=== PATIENT | male | born 1925 | race Caucasian/White ===

== ENCOUNTER → 2016-06-27 | Outpatient (CLI) | payer MEDICARE, BC ==
[~2016-06-27] MED LIST: CLON0.1T PO; DILT360C26 PO; HYDR-3138 PO; METF500T4 PO; PIOG45TA PO; VALS160T3 PO
== END | disposition home or self-care (01) ==
LOC: PETCFH 09:50
PROVIDERS: ATTEND Internal Medicine Hematology & Oncology
DX: C61 Malignant neoplasm of prostate (principal); C34.90 Malignant neoplasm of unspecified part of unspecified bronchus or lung; J90 Pleural effusion, not elsewhere classified
CPT/HCPCS: 78815; A9552

== ENCOUNTER 2016-07-05 11:52 | Day surgery (SDC) | payer MEDICARE, BC ==
[~2016-07-05] VITALS: Ht 182.9 cm; Wt 74.0 kg
[2016-07-05 12:54] VITALS: BP 160/74
[2016-07-05] MEDS ORDERED: SODIUM CHLORIDE 0.9% 1,000 ML IV SCH (12:58)
[2016-07-05] MEDS ORDERED: MIDAZOLAM 1 MG/ML, 5ML ONE (13:09)
[2016-07-05] MEDS ORDERED: FENTANYL PF 100 MCG/2ML ONE (13:09)
== END 2016-07-05 14:45 | disposition home or self-care (01) ==
LOC: OUT 11:52
PROVIDERS: ATTEND Internal Medicine Hematology & Oncology
DX: E27.8 Other specified disorders of adrenal gland (principal); C61 Malignant neoplasm of prostate; I10 Essential (primary) hypertension; Z85.118 Personal history of other malignant neoplasm of bronchus and lung; E11.9 Type 2 diabetes mellitus without complications
CPT/HCPCS: 49180; 77012; 88304; J2250; J3010; J7030

== ENCOUNTER 2016-07-30 06:26 | Day surgery (SDC) | payer MEDICARE, BC ==
[~2016-07-30] VITALS: Ht 182.9 cm; Wt 72.0 kg
[2016-07-30 07:15] VITALS: BP 146/72
[2016-07-30] MEDS ORDERED: LIDOCAINE 1%, 20ML ONE (07:56)
[2016-07-30] MEDS ORDERED: FENTANYL PF 100 MCG/2ML ONE (08:07)
[2016-07-30] MEDS ORDERED: NALOXONE 1 MG/ML, 2ML ONE (08:07)
[2016-07-30] MEDS ORDERED: MIDAZOLAM 1 MG/ML, 5ML ONE (08:07)
[2016-07-30] MEDS ORDERED: FLUMAZENIL 0.1 MG/1 ML, 5ML ONE (08:07)
== END 2016-07-30 10:50 | disposition home or self-care (01) ==
LOC: OUT 06:26
PROVIDERS: ATTEND Radiology Radiation Oncology
DX: Z02.9 Encounter for administrative examinations, unspecified (principal)
CPT/HCPCS: 49411; 77014; J2250; J3010; J3490; A4648; J2310

== ENCOUNTER → 2016-10-21 | Outpatient (CLI) | payer MEDICARE, BC ==
[~2016-10-21] MED LIST changes: -PIOG45TA PO; +PIOG45TA3 PO
== END | disposition home or self-care (01) ==
LOC: ROC 09:37
PROVIDERS: ATTEND Radiology Radiation Oncology
DX: Z08 Encounter for follow-up examination after completed treatment for malignant neoplasm (principal); C61 Malignant neoplasm of prostate; C79.72 Secondary malignant neoplasm of left adrenal gland; C78.00 Secondary malignant neoplasm of unspecified lung; E11.9 Type 2 diabetes mellitus without complications
CPT/HCPCS: G0463